=== PATIENT | female | born 1975 | race Caucasian/White ===

== ENCOUNTER 2017-01-14 14:39 | Outpatient (CLI) | payer MEDICARE, OTHER ==
[~2017-01-14 14:39] MED LIST: ACTIGALL300 MG PO; AUGMENTIN 875-1 EACH PO; CIPRO500 MG PO; FUROSEMIDE20 M1 PO; SPIRONOLACTONE25 MG PO; TYLENOL #31 TAB PO
[2017-01-14 14:52] VITALS: BP 118/68
[2017-01-14] MEDS ORDERED: ENVARSUS XR1 MG PO (16:58)
[2017-01-14] MEDS ORDERED: PERCOCET 10-321 EAC1 PO (16:58)
[2017-01-14] MEDS ORDERED: PROPRANOLOL HCL10 MG ORAL (16:58)
[2017-01-14] MEDS ORDERED: MYFORTIC360 MG PO (16:58)
[2017-01-14] MEDS ORDERED: WELLBUTRIN SR100 MG ORAL (16:58)
[2017-01-14] MEDS ORDERED: URSODIOL300 MG ORAL (16:58)
[2017-01-14] MEDS ORDERED: ACYCLOVIR200 MG ORAL (16:58)
[2017-01-14] MEDS ORDERED: ATIVAN1 MG ORAL (16:58)
--- NOTE | 2017-01-19 09:00 | GI Initial Consult Note ---
History of Present Illness General Date patient seen: Jan 19, 2017 Time patient seen: 15:00 Referring physician: JIMENA Reason for Consultation: ELEVATED CEA Present Illness HPI 41 year old female patient referred by Dr. Cole to evaluate elevated CEA on recent labs. In addition, she presents today with c/o of left foot pain. No other GI complaints noted Denies any weight loss or changes in dietary habits. No history of endoscopy/colonoscopies. Home Meds Reported Medications Bupropion Sr* (WELLBUTRIN SR*) 100 Mg Tablet.er, 150 MG ORAL TWICE A DAY for 30 Days, TAB 0 Refills 01/14/17 Lorazepam* (ATIVAN*) 1 Mg Tablet, 1 MG ORAL PRN, TAB 01/14/17 Oxycodone HCl/Acetaminophen (Percocet 10-325 mg Tablet) 1 Each Tablet, PO, TAB 01/14/17 Acyclovir* (ACYCLOVIR*) 200 Mg Capsule, 300 MG ORAL BID, CAP 01/14/17 Ursodiol (URSODIOL*) 300 Mg Capsule, 500 MG ORAL TWICE A DAY, #30 CAP 0 Refills 01/14/17 Propranolol Hcl* (INDERAL*) 10 Mg Tablet, 10 MG ORAL BID, #90 TAB 0 Refills 01/14/17 Mycophenolate Sodium (MYFORTIC) 360 Mg Tablet.dr, 360 MG PO BID, TAB 01/14/17 Tacrolimus (Envarsus Xr) 1 Mg Tab.er.24h, 2 MG PO, TAB 01/14/17 Discontinued Reported Medications Spironolactone* (ALDACTONE*) 25 Mg Tablet, 25 MG PO DAILY 02/13/12 Furosemide* (LASIX*) 20 Mg Tablet, 20 MG PO DAILY, #10 TAB Take 1 tablet by mouth daily 02/13/12 Ursodiol* (ACTIGALL*) 300 Mg Capsule, 300 MG PO DAILY, #10 CAP 02/13/12 Ciprofloxacin* (CIPRO*) 500 Mg Tablet, 500 MG PO BID, #14 TAB Take 1 tablet by mouth 2 times a day 02/13/12 Discontinued Scripts Acetaminophen/Codeine 300MG/30MG* (TYLENOL #3*) 1 Tab Tab, 1 TAB PO Q4H, #15 TAB Take 1 tablet by mouth every 4 hours as needed for pain. Prov:LILLY RIOS.Kala 02/13/12 Amoxicillin/Potassium Clav 875MG* (AUGMENTIN 875-125 TABLET*) 1 Each Tablet, 1 EACH PO BID for 7 Days, TAB 1 Refill Take one tablet by mouth twice a day. (Take with food & water) Prov:LILLY RIOS ToshiaAline. 02/13/12 Med list reviewed/reconciled: Yes Allergies: Coded Allergies: ACETAMINOPHEN (Verified Allergy, Severe, 01/18/17) MIGRAINES HYDROCODONE (Verified Allergy, Severe, 01/18/17) MIGRAINES ASPIRIN (Verified Allergy, Mild, Itching, 02/13/12) SULFA (SULFONAMIDE ANTIBIOTICS) (Verified Allergy, Unknown, 01/14/17) swelling METRONIDAZOLE (Verified Adverse Reaction, Mild, Itching, 02/13/12) METRONIDAZOLE HCL (Verified Adverse Reaction, Mild, Itching, 02/13/12) VANCOMYCIN (Verified Adverse Reaction, Mild, Itching, 02/13/12) Patient History History Provided By: Patient Past Medical History: liver disease, other - kidney disease, depression Social History: Denies: smoking, alcohol use, drug use, other Review of Systems All Other Systems: negative except mentioned in HPI Physical Exam T 98.0 BP 118/68 P 102 WT 142.1 Sp02 EP Interpretation: reviewed, normal General Appearance: well appearing, no apparent distress, alert Head: normocephalic EENT: PERRL/EOMI, normal ENT inspection Neck: supple Respiratory: normal breath sounds, no respiratory distress Cardiovascular: normal rate Gastrointestinal: normal inspection, non tender, soft, normal bowel sounds, non -distended Rectal: deferred Genitourinary: no CVA tenderness Musculoskeletal: normal inspection, back normal Neurologic: normal inspection, alert, oriented x3, responsive Psychiatric: normal inspection, judgement/insight normal, memory normal Skin: normal inspection, normal color, no rash, warm/dry, palpation normal, well hydrated Lymphatic: normal inspection, no adenopathy GI: Plan Problems: (1) Liver transplant candidate (2) Kidney disease (3) Colonoscopy planned (4) Depression Plan EGD/colonoscopy scheduled on 01/18/17. - CLD & (Nulytely/Suprep) prep instructions given and acknowledged by patient. - NPO @ [place] day prior procedure explained. Seen with Dr. Landeros. Thank you for this patient referral. NOTE THIS IS A LATE ENTRY, patient was seen on 01/14/17. Carina Gusman N.P. Jan 19, 2017 09:00
== END 2017-01-14 15:15 | disposition home or self-care (01) ==
LOC: PAN 14:39
DX: R97.0 Elevated carcinoembryonic antigen [CEA] (principal); M25.572 Pain in left ankle and joints of left foot; Z88.6 Allergy status to analgesic agent; Z88.2 Allergy status to sulfonamides; Z88.8 Allergy status to other drugs, medicaments and biological substances; N28.9 Disorder of kidney and ureter, unspecified; K76.9 Liver disease, unspecified; F32.9 Major depressive disorder, single episode, unspecified
CPT/HCPCS: 99201

== ENCOUNTER 2017-01-18 07:03 | Day surgery (SDC) | payer MEDICARE, MEDICAID ==
[~2017-01-18] VITALS: Ht 162.6 cm; Wt 63.5 kg
[2017-01-18] VITALS (8 sets, daily range): BP systolic 93–106; BP diastolic 62–68
--- NOTE | 2017-01-18 06:09 | Anethesia Preoperative Eval ---
Anesthesia Pre-op PMH/ROS General Date of Evaluation: Jan 18, 2017 Time of Evaluation: 06:08 Anesthesiologist: namrata ASA Score: ASA 4 Mallampati Score Class I : Soft palate, uvula, fauces, pillars visible Class II: Soft palate, uvula, fauces visible Class III: Soft palate, base of uvula visible Class IV: Only hard plate visible Mallampati Classification: Class II Surgeon: sinai Diagnosis: elevated cea Surgical Procedure: egd/colonoscopy Anesthesia History: none Social History: smoking - nonsmoker Family History: no anesthesia problems Allergies: Coded Allergies: ACETAMINOPHEN (Verified Allergy, Severe, 01/18/17) MIGRAINES HYDROCODONE (Verified Allergy, Severe, 01/18/17) MIGRAINES ASPIRIN (Verified Allergy, Mild, Itching, 02/13/12) SULFA (SULFONAMIDE ANTIBIOTICS) (Verified Allergy, Unknown, 01/14/17) swelling METRONIDAZOLE (Verified Adverse Reaction, Mild, Itching, 02/13/12) METRONIDAZOLE HCL (Verified Adverse Reaction, Mild, Itching, 02/13/12) VANCOMYCIN (Verified Adverse Reaction, Mild, Itching, 02/13/12) Medications: see eMAR Past Medical History Gastrointestinal/Genitourinary: Reports: CRI, other Anesthesia Pre-op Phys. Exam Physician Exam Last Vital Signs Date Time Temp Pulse Resp B/P (MAP) Pulse Ox O2 Delivery O2 Flow Rate FiO2 01/18/17 08:00 97.9 72 20 102/68 97 Room Air Constitutional: NAD Neurologic: CN 2-12 intact Cardiovascular: RRR Respiratory: CTA Gastrointestinal: S/NT/ND Airway Exam Mallampati Score: Class II MO: full Neck: supple TMD: 2fb ROM: full Teeth: intact Anesthesia Pre-op A/P Labs Urine Test neg Risk Assessment & Plan Assessment: asa4 Plan: mac Status Change Before Surgery: No Pre-Antibiotics Drug: ARPIT Goodman Jan 18, 2017 06:09
[~2017-01-18 07:03] MED LIST changes: +ACYCLOVIR200 MG ORAL; +ATIVAN1 MG ORAL; +ENVARSUS XR1 MG PO; +MYFORTIC360 MG PO; +PERCOCET 10-321 EAC1 PO; +PROPRANOLOL HCL10 MG ORAL; +URSODIOL300 MG ORAL; +WELLBUTRIN SR100 MG ORAL
[2017-01-18] MEDS ORDERED: fentaNYL 100 mcg/2 mL IV PRN (08:30)
[2017-01-18] MEDS ORDERED: Midazolam 2mg/2ml Inj IVP PRN (08:30)
[2017-01-18] MEDS ORDERED: DiphenhydrAMINE 50mg/ml Inj IVP PRN (08:30)
[2017-01-18] MEDS ORDERED: Atropine Inj 1mg/10ml Syr IV PRN (08:30)
--- NOTE | 2017-01-18 09:34 | Pre-Procedure Note/Attestation ---
Pre-Procedure Note/Attestation Complete Prior to Procedure Planned Procedure: not applicable Procedure Narrative: esophagogastroduodenoscopy and colonoscopy Indications for Procedure Pre-Operative Diagnosis: elevated CEA Attestation I attest that I discussed the nature of the procedure; its benefits; risks and complications; and alternatives (and the risks and benefits of such alternatives ), prior to the procedure, with the patient (or the patient's legal retail wireless sales representative). I attest that, if there was a reasonable possibility of needing a blood transfusion, the patient (or the patient's legal retail wireless sales representative) was given the [facility] standardized written summary, pursuant to the Harpal Jose Blood Safety Act ([place] Health and Safety Code # 1645, as amended). I attest that I re-evaluated the patient just prior to the surgery and that there has been no change in the patient's H&P, except as documented below: DOE MALIK Jan 18, 2017 09:34
--- NOTE | 2017-01-18 09:34 | Pre-Procedure Note/Attestation ---
Pre-Procedure Note/Attestation Complete Prior to Procedure Planned Procedure: not applicable Procedure Narrative: esophagogastroduodenoscopy and colonoscopy Indications for Procedure Pre-Operative Diagnosis: elevated CEA Attestation I attest that I discussed the nature of the procedure; its benefits; risks and complications; and alternatives (and the risks and benefits of such alternatives ), prior to the procedure, with the patient (or the patient's legal artists' booking representative). I attest that, if there was a reasonable possibility of needing a blood transfusion, the patient (or the patient's legal artists' booking representative) was given the [facility] standardized written summary, pursuant to the Harpal Jose Blood Safety Act ([place] Health and Safety Code # 1645, as amended). I attest that I re-evaluated the patient just prior to the surgery and that there has been no change in the patient's H&P, except as documented below: DOE MALIK Jan 18, 2017 09:34
--- NOTE | 2017-01-18 09:34 | Pre-Procedure Note/Attestation ---
Pre-Procedure Note/Attestation Complete Prior to Procedure Planned Procedure: not applicable Procedure Narrative: esophagogastroduodenoscopy and colonoscopy Indications for Procedure Pre-Operative Diagnosis: elevated CEA Attestation I attest that I discussed the nature of the procedure; its benefits; risks and complications; and alternatives (and the risks and benefits of such alternatives ), prior to the procedure, with the patient (or the patient's legal hospital sales representative). I attest that, if there was a reasonable possibility of needing a blood transfusion, the patient (or the patient's legal hospital sales representative) was given the [facility] standardized written summary, pursuant to the Harpal Jose Blood Safety Act ([place] Health and Safety Code # 1645, as amended). I attest that I re-evaluated the patient just prior to the surgery and that there has been no change in the patient's H&P, except as documented below: DOE MALIK Jan 18, 2017 09:34
--- NOTE | 2017-01-18 09:35 | Short Stay Surgery H&P ---
History of Present Illness History of Present Illness Chief Complaint elevated CEA see recent consult note HPI Mitzi Figueroa is a 41 year old female who was admitted on for Elevated Cea Patient History Allergies: Coded Allergies: ACETAMINOPHEN (Verified Allergy, Severe, 01/18/17) MIGRAINES HYDROCODONE (Verified Allergy, Severe, 01/18/17) MIGRAINES ASPIRIN (Verified Allergy, Mild, Itching, 02/13/12) SULFA (SULFONAMIDE ANTIBIOTICS) (Verified Allergy, Unknown, 01/14/17) swelling METRONIDAZOLE (Verified Adverse Reaction, Mild, Itching, 02/13/12) METRONIDAZOLE HCL (Verified Adverse Reaction, Mild, Itching, 02/13/12) VANCOMYCIN (Verified Adverse Reaction, Mild, Itching, 02/13/12) PAST MEDICAL HISTORY: Past Surgeries: Social History: Medication History Scheduled Acyclovir* (Acyclovir*), 300 MG ORAL BID, (Reported) Bupropion Sr* (Wellbutrin Sr*), 150 MG ORAL TWICE A DAY, (Reported) Lorazepam* (Ativan*), 1 MG ORAL PRN, (Reported) Mycophenolate Sodium (Myfortic), 360 MG PO BID, (Reported) Propranolol Hcl* (Inderal*), 10 MG ORAL BID, (Reported) Ursodiol (Ursodiol*), 500 MG ORAL TWICE A DAY, (Reported) Miscellaneous Medications Oxycodone HCl/Acetaminophen (Percocet 10-325 mg Tablet), Unknown Dose PO, ( Reported) Tacrolimus (Envarsus Xr), 2 MG PO, (Reported) Discontinued Medications Acetaminophen/Codeine 300MG/30MG* (Tylenol #3*), 1 TAB PO Q4H Discontinued Reason: MD discontinued med Amoxicillin/Potassium Clav 875MG* (Augmentin 875-125 Tablet*), 1 EACH PO BID Discontinued Reason: Therapy completed Ciprofloxacin* (Cipro*), 500 MG PO BID, (Reported) Discontinued Reason: Therapy completed Furosemide* (Lasix*), 20 MG PO DAILY, (Reported) Discontinued Reason: MD discontinued med Spironolactone* (Aldactone*), 25 MG PO DAILY, (Reported) Discontinued Reason: MD discontinued med Ursodiol* (Actigall*), 300 MG PO DAILY, (Reported) Discontinued Reason: MD discontinued med Physical Exam Vital Signs Last Vital Signs Date Time Temp Pulse Resp B/P (MAP) Pulse Ox O2 Delivery O2 Flow Rate FiO2 01/18/17 08:00 97.9 72 20 102/68 97 Room Air Labs Laboratory Tests Test 01/18/17 07:25 Urine HCG, Qualitative Negative Plan Attestation Are the patient's medical conditions optimized for surgery? DOE MALIK Jan 18, 2017 09:35
[2017-01-18] MEDS ORDERED: Lidocaine 1% MPF 10mg/ml 5ml ONE (10:00)
[2017-01-18] MEDS ORDERED: Propofol 200mg/20ml IV ONE (10:00)
--- NOTE | 2017-01-18 10:17 | Endoscopy Procedure Note ---
Endoscopy Procedure Note Indication for Procedure: elevated CEA Procedures Performed: EGD, colonoscopy Operative Findings/Diagnosis: gastritis, one polyp Specimen: yes Pt Tolerated Procedure Well: Yes Estimated Blood Loss: none Anesthesiologist: kurtis Anesthesia: MAC Implant(s) used?: No 50 yrs or older w/o bx or poly: No 10yrs. F/U not recommended: Yes If not recommended, why?: Above average risk 10 yrs. F/U needed: Yes 18 years or older w/prev. colo: No DOE MALIK Jan 18, 2017 10:17
--- NOTE | 2017-01-18 10:17 | Endoscopy Procedure Note ---
Endoscopy Procedure Note Indication for Procedure: elevated CEA Procedures Performed: EGD, colonoscopy Operative Findings/Diagnosis: gastritis, one polyp Specimen: yes Pt Tolerated Procedure Well: Yes Estimated Blood Loss: none Anesthesiologist: kurtis Anesthesia: MAC Implant(s) used?: No 50 yrs or older w/o bx or poly: No 10yrs. F/U not recommended: Yes If not recommended, why?: Above average risk 10 yrs. F/U needed: Yes 18 years or older w/prev. colo: No DEO MALIK Jan 18, 2017 10:17
--- NOTE | 2017-01-18 10:45 | Immediate Post-Op Evaluation ---
Immediate Post-Op Evalulation Immediate Post-Op Evalulation Procedure: egd/colonoscopy Date of Evaluation: Jan 18, 2017 Time of Evaluation: 10:36 IV Fluids: 450ml 0.9ns Blood Products: none Estimated Blood Loss: negligible Blood Pressure Systolic: 106 Blood Pressure Diastolic: 64 Pulse Rate: 76 Respiratory Rate: 18 O2 Sat by Pulse Oximetry: 100 Temperature (Fahrenheit): 97.8 Pain Score (1-10): 0 Nausea: No Vomiting: No Complications none Patient Status: awake, reacts, patent Hydration Status: adequate Drug: ARPIT Goodman Jan 18, 2017 10:45
--- NOTE | 2017-01-18 10:47 | 48 Hour Post Anesthesia Eval ---
Post Anesthesia Evaluation Procedure: egd/colonoscopy Date of Evaluation: Jan 18, 2017 Time of Evaluation: 10:45 Blood Pressure Systolic: 106 0: 64 Pulse Rate: 76 Respiratory Rate: 18 Temperature (Fahrenheit): 97.8 O2 Sat by Pulse Oximetry: 100 Airway: patent Nausea: No Vomiting: No Pain Intensity: 0 Hydration Status: adequate Cardiopulmonary Status: stable Mental Status/LOC: patient returned to baseline Post-Anesthesia Complications: none Follow-up care needed: N/A ARPIT LIU Jan 18, 2017 10:47
--- NOTE | 2017-01-18 17:30 | Procedure Note ---
DATE OF PROCEDURE: 01/18/2017 SURGEON: Bob Landeros M.D. REFERRING PHYSICIAN: Bob Cole M.D. PROCEDURE: Colonoscopy with biopsy and endoscopy with biopsy. ANESTHESIOLOGIST: Jazmin Lucero M.D. INSTRUMENT: Olympus adult flexible upper endoscope and colonoscope. The procedure, risks, benefits, and possible consequences, including hemorrhage, aspiration, perforation and infection, and alternative treatments, were explained to the patient/legal guardian by Dr. Bob Landeros and the patient/legal guardian understood and accepted these risks. INDICATION: Elevated CEA. DESCRIPTION OF PROCEDURE: After informed consent was obtained and the patient was adequately sedated, Olympus upper endoscope was advanced from mouth into the second portion of duodenum and retroflexion was performed in the stomach. The patient had diffuse gastritis. Random biopsy from body and antrum of the stomach was obtained to rule out H. pylori infection. At this time, the upper endoscope was retrieved and the patient was turned over for colonoscopy. First, a rectal exam was performed, which was normal. Then, the scope was advanced from rectum into the cecum, documented by appendiceal orifice, ileocecal valve, and right upper quadrant palpation. Quality of prep was very good. The patient had 1 diminutive polyp in the distal rectum, most probably hyperplastic polyp, which was biopsied. Retroflexion of rectum showed evidence of mural few small nonbleeding internal hemorrhoids. The patient tolerated the procedure very well without any complication. SUMMARY OF FINDINGS: 1. Diffuse gastritis, status post biopsy. 2. One colonic polyp removed, see above for details. 3. Internal hemorrhoids. RECOMMENDATIONS: Follow up biopsies and treat accordingly. I want to thank, Dr. Bob Cole, for this kind referral. Bob Landeros M.D. DR: INDER JOB#: [id number] CC: Bob Cole M.D.; Fax#: [phone]
== END 2017-01-18 11:50 | disposition home or self-care (01) ==
LOC: GAS 07:03
DX: R97.0 Elevated carcinoembryonic antigen [CEA] (principal); K63.5 Polyp of colon; K64.8 Other hemorrhoids; N18.9 Chronic kidney disease, unspecified; Z88.6 Allergy status to analgesic agent; Z88.2 Allergy status to sulfonamides; Z88.8 Allergy status to other drugs, medicaments and biological substances; K29.50 Unspecified chronic gastritis without bleeding
CPT/HCPCS: 43239; 45380; 81025; J2704; 94003; 94150

== ENCOUNTER 2017-02-04 13:12 | Outpatient (CLI) | payer MEDICARE, MEDICAID ==
--- NOTE | 2017-02-04 14:03 | GI Progress Note ---
Assessment/Plan Problems: (1) Liver transplant candidate ICD Codes: Z76.82 - Awaiting organ transplant status SNOMED: 430195071 (2) Kidney disease ICD Codes: N28.9 - Disorder of kidney and ureter, unspecified SNOMED: 57629025 (3) Depression ICD Codes: F32.9 - Major depressive disorder, single episode, unspecified SNOMED: 63130616 Status: stable Status Narrative Seen with Dr. Landeros. Assessment/Plan s/p EGD/colonoscopy SUMMARY OF FINDINGS reviewed with patient: 1. Diffuse gastritis, status post biopsy. 2. One colonic polyp removed, see above for details. 3. Internal hemorrhoids. RECOMMENDATIONS: Follow up biopsies and treat accordingly >> unremarkable Trial period with Align RTC x 3 months repeat colonoscopy x 10 years Subjective Subjective abdominal pain, not sure related to liver transplant Objective T 98 BP 110/57 General Appearance: WD/WN, no apparent distress, alert Cardiovascular: normal rate Respiratory/Chest: normal breath sounds, no respiratory distress Abdominal Exam: normal bowel sounds, non tender, soft Extremities: normal range of motion, non-tender Carina Gusman N.P. Feb 04, 2017 14:03
[2017-02-04 14:11] VITALS: BP 110/57
== END 2017-02-04 14:00 | disposition home or self-care (01) ==
LOC: PAN 13:12
DX: N28.9 Disorder of kidney and ureter, unspecified (principal); Z79.82 Long term (current) use of aspirin; F32.9 Major depressive disorder, single episode, unspecified; K29.70 Gastritis, unspecified, without bleeding; K63.5 Polyp of colon; K64.8 Other hemorrhoids
CPT/HCPCS: 99211

== ENCOUNTER 2020-01-22 14:06 | Outpatient (CLI) | payer MEDICAID, MEDICARE ==
[~2020-01-22] VITALS: Ht 165.1 cm; Wt 64.0 kg
[2020-01-22 14:36] VITALS: BP 106/72
--- NOTE | 2020-01-22 16:00 | Consultation ---
DATE OF CONSULTATION: 01/22/2020 GASTROENTEROLOGY CONSULTATION CHIEF COMPLAINT: Elevated CEA. HISTORY OF PRESENT ILLNESS: This is a 44-year-old female with diagnosis of Caroli disease, status post liver transplant in 2014. She is here for elevated CEA of 9. The patient at this time is symptomatic. PAST MEDICAL HISTORY: 1. Caroli disease, status post liver transplant. 2. History of depression. 3. History of gastritis, H pylori negative. 4. History of colonic polyps. 5. Hemorrhoids. ALLERGIES: No known allergies. MEDICATIONS: Please see medication reconciliation list. SOCIAL HISTORY: The patient denies any tobacco, alcohol, or drug abuse. REVIEW OF SYSTEMS: A 10-point review of systems was performed and pertinent positives are in HPI. PHYSICAL EXAMINATION: GENERAL: A well-developed female. VITAL SIGNS: Temperature is 97.3, blood pressure is 106/72, pulse 85, respirations 20. HEENT: Normocephalic and atraumatic. Sclerae are anicteric. NECK: Supple. No evidence of obvious lymphadenopathy. CARDIOVASCULAR: Regular rate and rhythm. Plus S1 and S2. LUNGS: Clear to auscultation bilaterally. ABDOMEN: Positive bowel sounds. Soft and nontender. No rebound. No guarding. No peritoneal sign. EXTREMITIES: No cyanosis. No clubbing. No edema. ASSESSMENT AND PLAN: A 44-year-old female with Caroli disease, status post liver transplant, referred to us for elevated CEA of 9.4. The patient is very concerned. Apparently, CEA 3 years ago was 5.7, now is 9.4 and is rising. The patient is to be scheduled for endoscopy and colonoscopy. I want to thank Dr. Cole for this kind referral. Bob Landeros M.D. DR: HARI JOB#: [id number] CC: Bob Cole M.D.; Fax#: [phone]
== END 2020-01-22 16:06 | disposition home or self-care (01) ==
LOC: PAN 14:06
DX: R97.0 Elevated carcinoembryonic antigen [CEA] (principal); F32.9 Major depressive disorder, single episode, unspecified; Z94.4 Liver transplant status; Z86.010 Personal history of colon polyps
CPT/HCPCS: 99212

== ENCOUNTER 2020-02-07 08:00 | Day surgery (SDC) | payer MEDICARE ==
[~2020-02-07] VITALS: Ht 163.8 cm; Wt 59.9 kg
[2020-02-07] VITALS (8 sets, daily range): BP systolic 91–109; BP diastolic 49–73
[~2020-02-07 08:00] MED LIST changes: +ABILIFY10 MG ORAL; +FUROSEMIDE80 M1 ORAL; +LR 1000ml 1,000 ML IVLG SCH; +SPIRONOLACTONE50 MG ORAL
[2020-02-07] MEDS ORDERED: Midazolam 2mg/2ml Inj IVP PRN (08:30)
[2020-02-07] MEDS ORDERED: fentaNYL 100 mcg/2 mL IV PRN (08:30)
[2020-02-07] MEDS ORDERED: DiphenhydrAMINE 50mg/ml Inj IVP PRN (08:30)
[2020-02-07] MEDS ORDERED: LR 1000ml 1,000 ML IVLG SCH (08:30)
[2020-02-07] MEDS ORDERED: Atropine Inj 1mg/10ml Syr IVP PRN (08:30)
--- NOTE | 2020-02-07 08:46 | Anethesia Preoperative Eval ---
Anesthesia Pre-op PMH/ROS General Date of Evaluation: Feb 07, 2020 Time of Evaluation: 08:30 Anesthesiologist: namrata ASA Score: ASA 4 Mallampati Score Class I : Soft palate, uvula, fauces, pillars visible Class II: Soft palate, uvula, fauces visible Class III: Soft palate, base of uvula visible Class IV: Only hard plate visible Mallampati Classification: Class II Surgeon: sinai Diagnosis: elevated cea Surgical Procedure: egd/colonoscopy Anesthesia History: none Social History: current smoker Family History: no anesthesia problems Allergies: Coded Allergies: HYDROCODONE (Verified Allergy, Severe, 02/07/20) MIGRAINES ASPIRIN (Verified Allergy, Mild, Itching, 02/07/20) SULFA (SULFONAMIDE ANTIBIOTICS) (Verified Allergy, Unknown, 02/07/20) swelling METRONIDAZOLE (Verified Adverse Reaction, Mild, Itching, 02/07/20) METRONIDAZOLE HCL (Verified Adverse Reaction, Mild, Itching, 02/07/20) VANCOMYCIN (Verified Adverse Reaction, Mild, Itching, 02/07/20) Medications: see eMAR Patient NPO?: Yes Past Medical History Gastrointestinal/Genitourinary: Reports: other - elevated cea, renal disease, liver transplant Neurologic/Psychiatric: Reports: depression/anxiety, other - migraine headaches PSxH Narrative: liver transplant Anesthesia Pre-op Phys. Exam Physician Exam Last Vital Signs Date Time Temp Pulse Resp B/P (MAP) Pulse Ox O2 Delivery O2 Flow Rate FiO2 02/07/20 08:33 Room Air 02/07/20 08:31 98.1 81 18 106/73 100 Constitutional: NAD Neurologic: CN 2-12 intact Cardiovascular: RRR Respiratory: CTA Gastrointestinal: S/NT/ND Airway Exam Mallampati Score: Class II MO: full Neck: flexible TMD: 2fb ROM: full Anesthesia Pre-op A/P Labs Microbiology Date/Time Source Procedure Growth Status 02/05/20 10:20 Nasopharynx SARS-CoV-2 RdRp Gene Assay - Final Complete Labs Test 02/07/20 08:05 Urine HCG, Qualitative Negative (NEGATIVE) Urine Test Test 02/07/20 08:05 Urine HCG, Qualitative Pending Risk Assessment & Plan Assessment: asa4 Plan: mac Status Change Before Surgery: No Pre-Antibiotics Drug: Jazmin Lee MD Feb 07, 2020 08:46
[2020-02-07] MEDS ORDERED: LR 1000ml ONE (09:00)
[2020-02-07] MEDS ORDERED: Lidocaine 1% MPF 10mg/ml 5ml ONE (09:00)
--- NOTE | 2020-02-07 09:14 | Pre-Procedure Note/Attestation ---
Pre-Procedure Note/Attestation Complete Prior to Procedure Planned Procedure: not applicable Procedure Narrative: esophagogastroduodenoscopy and colonoscopy Indications for Procedure Pre-Operative Diagnosis: elevated CEA Attestation I attest that I discussed the nature of the procedure; its benefits; risks and complications; and alternatives (and the risks and benefits of such alternative s), prior to the procedure, with the patient (or the patient's legal signs sales representative). I attest that, if there was a reasonable possibility of needing a blood transfusion, the patient (or the patient's legal signs sales representative) was given the [place] [facility] standardized written summary, pursuant to the Harpal Jose Blood Safety Act ([place] Health and Safety Code # 1645, as amended). I attest that I re-evaluated the patient just prior to the surgery and that there has been no change in the patient's H&P, except as documented below: Bob Landeros MD Feb 07, 2020 09:14
--- NOTE | 2020-02-07 09:15 | Short Stay Surgery H&P ---
History of Present Illness History of Present Illness Chief Complaint see recent office consult note HPI Mitzi Figueroa is a 44 year old female who was admitted on for Elevated Cea Patient History Allergies: Coded Allergies: HYDROCODONE (Verified Allergy, Severe, 02/07/20) MIGRAINES ASPIRIN (Verified Allergy, Mild, Itching, 02/07/20) SULFA (SULFONAMIDE ANTIBIOTICS) (Verified Allergy, Unknown, 02/07/20) swelling METRONIDAZOLE (Verified Adverse Reaction, Mild, Itching, 02/07/20) METRONIDAZOLE HCL (Verified Adverse Reaction, Mild, Itching, 02/07/20) VANCOMYCIN (Verified Adverse Reaction, Mild, Itching, 02/07/20) Medication History Scheduled Acyclovir* (Acyclovir*), 300 MG ORAL BID, (Reported) Aripiprazole* (Abilify*), 5 MG ORAL DAILY, (Reported) Bupropion Sr* (Wellbutrin Sr*), 150 MG ORAL TWICE A DAY, (Reported) Furosemide* (Lasix*), 80 MG ORAL DAILY, (Reported) Lorazepam* (Ativan*), 1 MG ORAL PRN, (Reported) Mycophenolate Sodium (Myfortic), 360 MG PO BID, (Reported) Spironolactone* (Aldactone*), 50 MG ORAL DAILY, (Reported) Miscellaneous Medications Tacrolimus (Envarsus Xr), 2 MG PO, (Reported) Discontinued Medications Oxycodone HCl/Acetaminophen (Percocet 10-325 mg Tablet), Unknown Dose PO, (Reported) Discontinued Reason: MD discontinued med Propranolol Hcl* (Inderal*), 10 MG ORAL BID, (Reported) Discontinued Reason: MD discontinued med Ursodiol (Ursodiol*), 500 MG ORAL TWICE A DAY, (Reported) Discontinued Reason: MD discontinued med Physical Exam Vital Signs Last Vital Signs Date Time Temp Pulse Resp B/P (MAP) Pulse Ox O2 Delivery O2 Flow Rate FiO2 02/07/20 08:33 Room Air 02/07/20 08:31 98.1 81 18 106/73 100 Labs Laboratory Tests Test 02/07/20 08:05 Urine HCG, Qualitative Negative (NEGATIVE) Plan Attestation Are the patient's medical conditions optimized for surgery? Bob Landeros MD Feb 07, 2020 09:15
--- NOTE | 2020-02-07 09:49 | Endoscopy Procedure Note ---
Endoscopy Procedure Note General Indication for Procedure: elevated CEA Procedures Performed: EGD, colonoscopy - polyps Operative Findings/Diagnosis: gastritis, colo polyp Specimen: yes Pt Tolerated Procedure Well: Yes Estimated Blood Loss: none Anesthesia Anesthesiologist: balaji key Anesthesia: MAC Inserted Devices Implant(s) used?: No Quality Quality of Bowel Preparation: Good Did scope reach the cecum?: Yes Was there any complications?: No GI Core Measures 50 yrs or older w/o bx or poly: No 10yrs. F/U recommended: Yes If not recommended, why?: Above average risk 18 years or older w/prev. colo: Yes <3yrs. since last colonoscopy: No Bob Landeros MD Feb 07, 2020 09:49
--- NOTE | 2020-02-07 10:10 | Immediate Post-Op Evaluation ---
Immediate Post-Op Evalulation Immediate Post-Op Evalulation Procedure: egd/colonoscopy w/ bx Date of Evaluation: Feb 07, 2020 Time of Evaluation: 10:05 IV Fluids: 350 ml lr Blood Products: none Estimated Blood Loss: negligible Blood Pressure Systolic: 93 Blood Pressure Diastolic: 49 Pulse Rate: 80 Respiratory Rate: 18 O2 Sat by Pulse Oximetry: 100 Temperature (Fahrenheit): 97.5 Pain Score (1-10): 0 Nausea: No Vomiting: No Complications NONE Patient Status: awake, reacts, patent Hydration Status: adequate Drug: Jazmin Lee MD Feb 07, 2020 10:10
--- NOTE | 2020-02-07 10:13 | 48 Hour Post Anesthesia Eval ---
Post Anesthesia Evaluation Procedure: egd/colonoscopy w/ bx Date of Evaluation: Feb 07, 2020 Time of Evaluation: 10:11 Blood Pressure Systolic: 93 0: 68 Pulse Rate: 80 Respiratory Rate: 18 Temperature (Fahrenheit): 97.5 O2 Sat by Pulse Oximetry: 99 Airway: patent Nausea: No Vomiting: No Pain Intensity: 0 Hydration Status: adequate Cardiopulmonary Status: stable Mental Status/LOC: patient returned to baseline Post-Anesthesia Complications: none Follow-up care needed: N/A Jazmin Hall MD Feb 07, 2020 10:13
[2020-02-07 10:20] LABS: HEMATOCRIT 48.1 % (37.0-47.0); HEMOGLOBIN 15.6 G/DL (12.0-16.0); MEAN CORPUSCULAR VOLUME 97 FL (80-99); PLATELET COUNT 26 K/UL (150-450); RED BLOOD COUNT 4.96 M/UL (4.20-5.40); RED CELL DISTRIBUTION WIDTH 12.4 % (11.6-14.8); WHITE BLOOD COUNT 4.6 K/UL (4.8-10.8)
[2020-02-07 10:25] LABS: EOSINOPHILS % (AUTO) 1.5 % (0.0-3.0); LYMPHOCYTES % (AUTO) 16.7 % (20.0-45.0); MONOCYTES % (AUTO) 5.5 % (1.0-10.0); NEUTROPHILS % (AUTO) 75.4 % (45.0-75.0)
--- NOTE | 2020-02-07 10:45 | Procedure Note ---
DATE OF PROCEDURE: 02/07/2020 SURGEON: Bob Landeros MD. PROCEDURE: Upper endoscopy with biopsy and colonoscopy with biopsy. ANESTHESIA: Per Dr. Lucero. INSTRUMENT: Olympus adult flexible upper endoscope and colonoscope. INDICATION: Elevated CEA. REASON FOR PROCEDURE: The procedure, risks, benefits, and possible consequences, including hemorrhage, aspiration, perforation and infection, and alternative treatments, were explained to the patient/legal guardian by Dr. oBb Landeros and the patient/legal guardian understood and accepted these risks. DESCRIPTION OF PROCEDURE: After informed consent was obtained and the patient was adequately sedated, Olympus upper endoscope was advanced from mouth into the second portion of the duodenum and retroflexion was performed in the stomach. The patient has diffuse gastritis. Random biopsy from antrum was obtained. The antrum and body was obtained to rule out H. pylori infection. At this time, the upper endoscope was retrieved and the patient was turned over for colonoscopy. First, rectal exam was performed, which was positive for internal hemorrhoids. Then, the scope was advanced from rectum into the cecum, then subsequently terminal ileum. Quality of prep was excellent. The patient had a total of three diminutive polyps in the rectosigmoid area. All three were removed with cold biopsy forceps technique, otherwise the rest of the colonoscopy examination grossly looked within normal limits. Retroflexion of the rectum was also performed, which showed evidence of internal hemorrhoids. SUMMARY OF FINDINGS: 1. Gastritis, status post biopsy. 2. Three colonic polyps removed, see above for details. 3. Internal hemorrhoids. RECOMMENDATIONS: 1. Follow up biopsy results and treat accordingly. 2. We are going to repeat the CEA today and if it is still elevated, we will consider doing either capsule endoscopy for evaluation of small intestines versus CT for evaluation of other organs. Bob Landeros M.D. DR: JENS JOB#: [id number] CC:
[2020-02-07 10:50] LABS: ALBUMIN 4.3 G/DL (3.4-5.0); ALBUMIN/GLOBULIN RATIO 1.4 (1.0-2.7); BILIRUBIN,TOTAL 0.8 MG/DL (0.2-1.0); CALCIUM 8.8 MG/DL (8.5-10.1); POTASSIUM 3.9 MMOL/L (3.5-5.1)
== END 2020-02-07 10:52 | disposition home or self-care (01) ==
LOC: GAS 08:00
DX: R97.0 Elevated carcinoembryonic antigen [CEA] (principal); K63.5 Polyp of colon; K64.8 Other hemorrhoids; Z88.6 Allergy status to analgesic agent; K29.50 Unspecified chronic gastritis without bleeding; Z88.2 Allergy status to sulfonamides; Z88.8 Allergy status to other drugs, medicaments and biological substances; Z79.899 Other long term (current) drug therapy; F17.200 Nicotine dependence, unspecified, uncomplicated; F32.9 Major depressive disorder, single episode, unspecified; F41.9 Anxiety disorder, unspecified; Z94.4 Liver transplant status; N28.9 Disorder of kidney and ureter, unspecified
CPT/HCPCS: 36415; 43239; 45380; 80053; 81025; 82378; 85025; 94003; J2704; J7120; U0002; 94150

== ENCOUNTER 2020-02-14 13:09 | Outpatient (CLI) | payer MEDICARE ==
[~2020-02-14 13:09] MED LIST changes: -LR 1000ml 1,000 ML IVLG SCH
[2020-02-14 13:23] VITALS: BP 113/76
--- NOTE | 2020-02-14 13:41 | General Progress Note ---
Subjective ROS Limited/Unobtainable: Yes Allergies: Coded Allergies: HYDROCODONE (Verified Allergy, Severe, 02/07/20) MIGRAINES ASPIRIN (Verified Allergy, Mild, Itching, 02/07/20) SULFA (SULFONAMIDE ANTIBIOTICS) (Verified Allergy, Unknown, 02/07/20) swelling METRONIDAZOLE (Verified Adverse Reaction, Mild, Itching, 02/07/20) METRONIDAZOLE HCL (Verified Adverse Reaction, Mild, Itching, 02/07/20) VANCOMYCIN (Verified Adverse Reaction, Mild, Itching, 02/07/20) Objective Last 24 Hour Vital Signs Date Time Temp Pulse Resp B/P (MAP) Pulse Ox O2 Delivery O2 Flow Rate FiO2 02/14/20 13:23 97.6 86 16 113/76 96 General Appearance: alert EENT: normal ENT inspection Neck: supple Cardiovascular: normal rate Respiratory/Chest: decreased breath sounds Abdomen: normal bowel sounds, non tender, soft Extremities: non-tender Assessment/Plan Assessment/Plan: SUMMARY OF FINDINGS: 1. Gastritis, status post biopsy.>>> neg 2. Three colonic polyps removed,>>> hyperplastic 3. Internal hemorrhoids. RECOMMENDATIONS: repeat the CEA today and if it is still elevated, we will consider doing either capsule endoscopy for evaluation of small intestines versus CT for evaluation of other organs. Bob Landeros MD Feb 14, 2020 13:41
== END 2020-02-14 15:09 | disposition home or self-care (01) ==
LOC: PAN 13:09
DX: K29.70 Gastritis, unspecified, without bleeding (principal); K63.5 Polyp of colon; K64.8 Other hemorrhoids; Z88.6 Allergy status to analgesic agent; Z88.2 Allergy status to sulfonamides
CPT/HCPCS: 99212